=== PATIENT | female | born 1980 | race Caucasian/White ===

== ENCOUNTER 2019-01-26 16:33 | Emergency (ER) | payer SELFPAY ==
[~2019-01-26] VITALS: Ht 162.6 cm; Wt 52.0 kg
[2019-01-26 16:39] VITALS: Ht 162.6 cm; Wt 52.0 kg
--- NOTE | 2019-01-26 16:44 | ERD ---
ER Documentation Chief Complaint Chief Complaint ETOH HPI The patient is a 29-year-old female, was found on the street intoxicated, b rought to the ER for evaluation, Accu check was 90 per EMS. She is unable to provide any history, the history is obtained from EMS Past medical/surgical history/social history/review system: Unable to obtain due to her condition ROS All systems reviewed and are negative except as per history of present illness. Medications Home Meds Unable to Obtain Active Prescriptions or Reported Meds Allergies Allergies: Coded Allergies: Unknown: Unable to obtain (Unverified , 01/26/19) Physical Exam Vitals Vital Signs Date Temp Pulse Resp B/P (MAP) Pulse Ox O2 O2 Flow FiO2 Time Delivery Rate 01/26/19 79 14 116/84 100 Room Air 16:50 (95) 01/26/19 99.0 90 16 118/60 98 16:39 (79) Physical Exam Const: No acute distress. Unkempt Head: Atraumatic. Eyes: Normal Conjunctiva. ENT: Normal External Ears, Nose and Mouth. Neck: Full range of motion. No meningismus. Resp: Clear to auscultation bilaterally. Cardio: Regular rate and rhythm. Abd: Soft, non distended, normal bowel sounds, non tender. Skin: No petechiae or rashes. Back: No midline or flank tenderness. Ext: No cyanosis, or edema. Neur: Awake. Limited exam due to her condition Psych: Unable to perform due to her condition Result Diagram: 01/26/19 1717 01/26/19 1717 Results 24 hrs Laboratory Tests Test 01/26/19 17:17 01/26/19 18:00 White Blood Count 7.1 10^3/ul Red Blood Count 3.58 10^6/ul Hemoglobin 10.3 g/dl Hematocrit 31.4 % Mean Corpuscular Volume 87.7 fl Mean Corpuscular Hemoglobin 28.8 pg Mean Corpuscular Hemoglobin Concent 32.8 g/dl Red Cell Distribution Width 13.9 % Platelet Count 258 10^3/UL Mean Platelet Volume 10.7 fl Immature Granulocytes % 0.100 % Neutrophils % 61.6 % Lymphocytes % 30.9 % Monocytes % 5.1 % Eosinophils % 2.0 % Basophils % 0.3 % Nucleated Red Blood Cells % 0.0 /100WBC Immature Granulocytes # 0.010 10^3/ul Neutrophils # 4.4 10^3/ul Lymphocytes # 2.2 10^3/ul Monocytes # 0.4 10^3/ul Eosinophils # 0.1 10^3/ul Basophils # 0.0 10^3/ul Nucleated Red Blood Cells # 0.0 10^3/ul Sodium Level 146 mmol/L Potassium Level 3.4 mmol/L Chloride Level 112 mmol/L Carbon Dioxide Level 21 mmol/L Anion Gap 13 Blood Urea Nitrogen 22 mg/dl Creatinine 1.00 mg/dl Est Glomerular Filtrat Rate mL/min > 60 mL/min Glucose Level 99 mg/dl Calcium Level 8.7 mg/dl Total Bilirubin 0.3 mg/dl Direct Bilirubin 0.00 mg/dl Indirect Bilirubin 0.3 mg/dl Aspartate Amino Transf (AST/SGOT) 34 IU/L Alanine Aminotransferase (ALT/SGPT) 30 IU/L Alkaline Phosphatase 68 IU/L Total Protein 7.6 g/dl Albumin 3.7 g/dl Globulin 3.90 g/dl Albumin/Globulin Ratio 0.94 Beta HCG, Quantitative < 2.4 mIU/ml Salicylates Level < 1.0 mg/dl Acetaminophen Level < 10.0 ug/ml Ethyl Alcohol Level 127.0 mg/dl Urine Color YELLOW Urine Clarity CLEAR Urine pH 5.0 Urine Specific [place] 1.021 Urine Ketones NEGATIVE mg/dL Urine Nitrite NEGATIVE mg/dL Urine Bilirubin NEGATIVE mg/dL Urine Urobilinogen NEGATIVE mg/dL Urine Leukocyte Esterase NEGATIVE Leonardo/ul Urine Hemoglobin NEGATIVE mg/dL Urine Glucose NEGATIVE mg/dL Urine Total Protein NEGATIVE mg/dl Current Medications Medications Dose Sig/Jessica Start Time Status Last (Trade) Ordered Route PRN Stop Time Admin Dose Reason Admin Sodium 1,000 ml @ Q1H ONCE 01/26/19 DC 01/26/19 Chloride 1,000 mls/hr IV 17:00 01/26/19 17:14 17:59 Potassium 20 meq ONCE STAT 01/26/19 DC 01/26/19 Chloride PO 18:28 01/26/19 18:54 (Klor-Con 20) 18:31 Procedures/MDM [address] [address] Radiology Main Line: [phone] DIAGNOSTIC IMAGING REPORT Patient: BEN [id number] : 01/26/1990 Age: 29 Sex: F MR #: [id number] [facility] #: [id number] DOS: 01/26/19 1646 Ordering MD: TIEN ESPINAL MD Location: E/R Room/Bed: PROCEDURE: CT Brain without contrast. CLINICAL INDICATION: Altered level of consciousness TECHNIQUE: A CT of the brain was performed on a GE LightSpeed 64-slice CT scanner utilizing axial imaging from the skull base through the vertex without IV contrast. Multiplanar reformatted images were made. Images were reviewed on a PACS workstation. The CTDIvol is 39.1 mGy and the DLP is 713.51 mGycm. One or more the following dose reduction techniques were utilized: Automated exposure control, adjustment of mA/ or kV according to patient's size, or use of iterative reconstruction technique. DICOM images are available for review. COMPARISON: None FINDINGS: There is no intracranial hemorrhage, mass effect, or midline shift. The ventricles and sulci are normal in size and configuration. The density of the brain is normal. There is good desai-white matter differentiation throughout the cerebral hemispheres. Images of the posterior fossa demonstrate presence of an arachnoid cyst along the left posterior fossa which measures approximately 8.4 by 3.6 x 3.3 cm with mass effect on the left cerebellum however no evidence of midline shift is seen. No extra-axial fluid collection is seen. The visualized paranasal sinuses and osseous structures are grossly unremarkable. IMPRESSION: No evidence of acute intracranial pathology. There is a left posterior fossa arachnoid cyst with mass effect on the left cerebellum however no evidence of vasogenic edema is seen. There is no hydrocephalus. RPTAT: KK Physician Francesco Date Time Electronically viewed and signed by Physician Francesco on 01/26/2019 17:44 RL/ CC: TIEN ESPINAL MD [id number] [place] [id number] Radiology Main Line: [phone] DIAGNOSTIC IMAGING REPORT Patient: SHILO [id number] : 01/26/1990 Age: 29 Sex: F MR #: [id number] DOS: 01/26/19 1646 Ordering MD: TIEN ESPINAL MD Location: E/R Room/Bed: PROCEDURE: CT Cervical Spine without contrast. CLINICAL INDICATION: Altered level of consciousness TECHNIQUE: A CT of the cervical spine was performed on a GE [employer] 64- slice CT scanner utilizing thin section axial images from the skull base through the thoracic inlet. Sagittal and coronal reformatted images were made. The CTDIvol is 22.26 mGy and the DLP is 549.24 mGycm. DICOM images are available. One or more of the following dose reduction techniques were utilized: 1.) Automated exposure control 2.) Adjustment of the mA +/- kV according to patient's size 3.) Use of iterative reconstruction technique. COMPARISON: No prior studies are available for comparison. FINDINGS: No evidence of acute fracture of the cervical spine. Body heights appear intact. Straightening of normal lordosis without vertebral body subluxation. No evidence of significant disc herniation or central canal stenosis. Soft tissue swelling. Possible small esophageal or tracheal diverticula at the level of the upper thoracic spine. No pneumothoraces in the lung apices detected IMPRESSION: No evidence of acute fracture of the cervical spine. Straightening of the normal lordosis may be positional or related to muscle spasm. RPTAT:AAJJ Physician Mikaela Date Time Electronically viewed and signed by Physician Mikaela on 01/26/2019 17:38 RF/ CC: TIEN ESPINAL MD [id number] [place] [id number] Radiology Main Line: [phone] DIAGNOSTIC IMAGING REPORT Patient: SHILO [id number] : 01/26/1990 Age: 29 Sex: F MR #: [id number] DOS: 01/26/19 1646 Ordering MD: TIEN ESPINAL MD Location: E/R Room/Bed: PROCEDURE: XR chest. CLINICAL INDICATION: Mental status change TECHNIQUE: Portable AP view of the chest was obtained. COMPARISON: None. FINDINGS: Lung volumes are small. Cardiomediastinal silhouette is normal. There is no pneumothorax or pleural effusion. There is no focal pulmonic consolidation. IMPRESSION: 1. Poor inspiration without evidence of acute pulmonary abnormality. RPTAT:HAJM Physician Rachele Date Time Electronically viewed and signed by Physician Rachele on 01/26/2019 17:35 RM/ CC: TIEN EPSINAL MD [id number] UDS Pending MEDICAL MAKING DECISION: The patient is a 29-year-old female, presenting with acute abuse, acute dehydration, acute hypokalemia. She was treated with 1 L normal saline for acute dehydration, potassium chloride 20 mg p.o. for acute hypokalemia with good response. She is awake, alert, able to ambulate independently and tolerate p.o., is stable for outpatient follow-up, denies suicidal ideation The differential diagnoses considered include but are not limited to dehydration, UTI, pneumonia, substance abuse, psychiatric illness Departure Diagnosis: Primary Impression: Alcohol abuse Additional Impressions: Hypokalemia Anemia Condition: Good Comments I discussed the findings with the patient. I advised the patient to follow-up with the primary physician in about 1-2 days, sooner if needed and return if any concern. Disclaimer: Inadvertent spelling and grammatical errors are likely due to EHR/dictation software use and do not reflect on the overall quality of patient care. Also, please note that the electronic time recorded on this note does not necessarily reflect the actual time of the patient encounter. TIEN ESPINAL MD Jan 26, 2019 16:44
[2019-01-26] MEDS ORDERED: SOD CHLORIDE 0.9% 1,000 ML IV ONE (17:00)
[2019-01-26] MEDS ORDERED: POTASSIUM CHLORIDE (SR) 20 MEQ TAB PO STA (18:28)
[2019-01-26 19:28] VITALS: BP 125/81; PULSE 65; RESP 16
== END 2019-01-26 19:31 | disposition home or self-care (01) ==
LOC: EDBD 16:33 → E/R 16:33
DX: F10.10 Alcohol abuse, uncomplicated (principal); R40.2352 Coma scale, best motor response, localizes pain, at arrival to emergency department; R40.2212 Coma scale, best verbal response, none, at arrival to emergency department; R40.2112 Coma scale, eyes open, never, at arrival to emergency department; E87.6 Hypokalemia; D64.9 Anemia, unspecified
CPT/HCPCS: 36415; 70450; 71045; 72125; 80053; 80307; 81003; 84702; 85025; 96360; 99285; J7030